=== PATIENT | male | born 1955 | race Caucasian/White ===

== ENCOUNTER 2021-06-28 09:08 | Emergency (ER) | payer OTHER ==
[2021-06-28 09:54] LABS: BASOPHILS % (AUTO) 0.7 %; EOSINOPHILS # (AUTO) 0.2 10^3/uL (0.0-0.7); EOSINOPHILS % (AUTO) 3.6 %; HCT - HEMATOCRIT 43.4 % (42.0-52.0); LYMPHOCYTES # (AUTO) 1.9 10^3/uL (1.5-3.5); MEAN CORPUSCULAR HEMOGLOBIN 32.7 pg (27.0-31.0); MEAN CORPUSCULAR HGB CONC 34.6 g/dL (32.0-36.0); MEAN CORPUSCULAR VOLUME 94.6 fL (80.0-94.0); MEAN PLATELET VOLUME 10.1 fL (7.4-11.4); MONOCYTES # (AUTO) 0.7 10^3/uL (0.0-1.0); MONOCYTES % (AUTO) 11.5 %; NEUTROPHILS # (AUTO) 2.9 10^3/uL (1.5-6.6); NEUTROPHILS % (AUTO) 50.9 %; PLT - PLATELET COUNT 160 10^3/uL (130-450); RED BLOOD COUNT 4.59 10^6/uL (4.70-6.10); RED CELL DISTRIBUTION WIDTH 12.8 % (12.0-15.0); WHITE BLOOD COUNT 5.8 x10^3/uL (4.8-10.8)
--- NOTE | 2021-06-28 09:54 | ED Physician Documentation ---
PD HPI ABD PAIN - Stated complaint Stated Complaint: RLQ PX - Chief complaint Chief Complaint: Abd Pain - History obtained from History obtained from: Patient - History of Present Illness Timing - onset: How many hours ago (2-3) Timing - duration: Hours (2-3) Timing - details: Abrupt onset, Still present Quality: Aching, Pain Location: RLQ, Suprapubic Radiation: Lower back Improved by: Laying still Worsened by: Moving, Palpation. No: Eating, Breathing Associated symptoms: Nausea. No: Fever, Vomiting, Diarrhea, Constipation, Dysuria Similar symptoms before: Has not had sx before (had prior diverticulitis but pain was left lower/lateral abd at that time and slower onset.) Recently seen: Not recently seen Review of Systems Constitutional: denies: Fever, Chills Nose: denies: Rhinorrhea / runny nose, Congestion Throat: denies: Sore throat Cardiac: denies: Chest pain / pressure Respiratory: denies: Dyspnea, Cough GI: reports: Abdominal Pain, Nausea. denies: Vomiting, Constipation, Diarrhea : denies: Dysuria Skin: denies: Rash, Lesions Neurologic: reports: Generalized weakness. denies: Near syncope Endocrine: denies: Weight loss Immunocompromised: denies: Immunocompromised PD PAST MEDICAL HISTORY - Past Medical History Cardiovascular: Hypertension Respiratory: None Neuro: None GI: Diverticulitis - Present Medications Home Medications: Ambulatory Orders Medication Instructions Recorded Confirmed Docusate Sodium 100Mg Capsule 100 mg PO DAILY #15 cap 06/28/21 [Colace 100Mg Capsule] HYDROcod/ACETAM 5/325 [[place] 5/325] 1 ea PO Q6H PRN #15 tablet 06/28/21 Naproxen 250 mg PO TID 7 Days #20 tablet 06/28/21 Ondansetron Odt [Zofran] 4 mg TL Q6H PRN #10 tablet 06/28/21 cephALEXin [Keflex] 500 mg PO BID 7 Days #14 cap 06/28/21 metroNIDAZOLE [Flagyl] 500 mg PO BID #14 tablet 06/28/21 - Allergies Allergies/Adverse Reactions: Allergies Allergy/AdvReac Type Severity Reaction Status Date / Time ciprofloxacin Allergy Edema Verified 06/28/21 09:36 PD ED PE NORMAL - Vitals Vital signs reviewed: Yes - General General: Alert and oriented X 3, Well developed/nourished, Other (appears in considerable pain. ) - Neck Neck: Supple, no meningeal sign, No adenopathy - Cardiac Cardiac: RRR, No murmur - Respiratory Respiratory: Clear bilaterally - Abdomen Abdomen: Normal bowel sounds, Soft, Non distended, No organomegaly, Other ( tender suprapubic and RLQ area with local guarding. Some tender left lower and refers to RLQ with palpation there. ) - Male Male : Deferred - Rectal Rectal: Deferred - Back Back: No CVA TTP - Derm Derm: Normal color, Warm and dry, No rash - Extremities Extremities: No edema, No calf tenderness / cord - Neuro Neuro: Alert and oriented X 3, No motor deficit, Normal speech Results - Vitals Vitals: Vital Signs - 24 hr 06/28/21 06/28/21 09:18 11:37 Temperature 37.2 C Heart Rate 57 L 76 Respiratory 17 18 Rate Blood Pressure 130/85 H 109/57 L O2 Saturation 99 99 Oxygen O2 Source Room air - Labs Labs: Laboratory Tests 06/28/21 06/28/21 06/28/21 09:47 09:47 09:53 WBC 5.8 RBC 4.59 L Hgb 15.0 Hct 43.4 MCV 94.6 H MCH 32.7 H MCHC 34.6 RDW 12.8 Plt Count 160 MPV 10.1 Neut # (Auto) 2.9 Lymph # (Auto) 1.9 [place] # (Auto) 0.7 Eos # (Auto) 0.2 Baso # (Auto) 0.0 Absolute Nucleated RBC 0.00 Nucleated RBC % 0.0 Sodium 139 Potassium 4.1 Chloride 106 Carbon Dioxide 24 Anion Gap 9.0 BUN 14 Creatinine 0.7 Estimated GFR (MDRD) 114 Glucose 131 H Calcium 9.0 Total Bilirubin 0.9 AST 39 ALT 56 Alkaline Phosphatase 65 Total Protein 7.2 Albumin 4.0 Globulin 3.2 Albumin/Globulin Ratio 1.3 Lipase 32 Urine Color YELLOW Urine Clarity CLEAR Urine pH 5.5 Ur Specific [place] >=1.030 H Urine Protein NEGATIVE Urine Glucose (UA) NEGATIVE Urine Ketones NEGATIVE Urine Occult Blood SMALL H Urine Nitrite NEGATIVE Urine Bilirubin NEGATIVE Urine Urobilinogen 0.2 (NORMAL) Ur Leukocyte Esterase NEGATIVE Urine RBC 0-5 Urine WBC 0-3 Ur Squamous Epith Cells FEW Squamous Urine Bacteria Rare Ur Microscopic Review INDICATED Urine Culture Comments NOT INDICATED - Rads (name of study) abd/pelvic CT Radiology: Prelim report reviewed (normal appendix. There is some fat stranding along sigmoid colon in area of diverticula. c/w diverticulitis. No focal abscess. ), See rad report PD MEDICAL DECISION MAKING - ED course Complexity details: reviewed results, re-evaluated patient (improved with pain meds, feeling comfortable enough now. ), considered differential (seems possible kidney stone, appendicitis, diverticulitits, aortic process, other concerns. ), d/w patient Departure - Departure Disposition: 01 Home, Self Care Clinical Impression: Diverticulitis Abdominal pain Qualifiers: Abdominal location: right lower quadrant Qualified Code(s): R10.31 - Right lower quadrant pain Condition: Stable Record reviewed to determine appropriate education?: Yes Instructions: ED Diverticulitis Prescriptions: Docusate Sodium 100Mg Capsule [Colace 100Mg Capsule] 100 mg PO DAILY #15 cap metroNIDAZOLE [Flagyl] 500 mg PO BID #14 tablet cephALEXin [Keflex] 500 mg PO BID 7 Days #14 cap Naproxen 250 mg PO TID 7 Days #20 tablet HYDROcod/ACETAM 5/325 [[place] 5/325] 1 ea PO Q6H PRN #15 tablet PRN Reason: Pain Ondansetron Odt [Zofran] 4 mg TL Q6H PRN #10 tablet PRN Reason: Nausea / Vomiting Comments: CT scan shows diverticulitis in the sigmoid area which is lower abdomen in the middle. No kidney stones. Normal appendix. No other acute process. Stay well-hydrated. Use ondansetron if needed for nausea. Naproxen twice daily for inflammation. Docusate stool softener twice daily for couple of days and then daily for a week or 2. This hopefully will help with some of the hemorrhoids as well. Metronidazole and cephalexin antibiotics as directed for a week. Add Tylenol every 4-6 hours or hydrocodone if needed for worse pain. Recheck if not improved well over the next 2 to 3 days. For some reason I was unable to transmit your prescriptions to the [facility] in [place]. I printed them out instead. Discharge Date/Time: 06/28/21 12:20
[2021-06-28 10:11] LABS: ALBUMIN/GLOBULIN RATIO 1.3 (1.0-2.2); BILIRUBIN,TOTAL 0.9 mg/dL (0.2-1.0); CREATININE 0.7 mg/dL (0.6-1.2); POTASSIUM 4.1 mmol/L (3.5-5.0); TOTAL PROTEIN 7.2 g/dL (6.7-8.2)
[2021-06-28 10:11] LABS: BILIRUBIN,URINE NEGATIVE (NEGATIVE); GLUCOSE, URINE (UA) NEGATIVE (NEGATIVE); KETONES,URINE (UA) NEGATIVE (NEGATIVE); LEUKOCYTE ESTERASE, URINE NEGATIVE (NEGATIVE); NITRITE,URINE NEGATIVE (NEGATIVE); OCCULT BLOOD,URINE SMALL (NEGATIVE); PH,URINE 5.5 PH (5.0-7.5); PROTEIN,URINE NEGATIVE (NEGATIVE); UROBILINOGEN,URINE 0.2 (NORMAL) E.U./dL (NORMAL)
[2021-06-28 10:12] LABS: CLARITY,URINE CLEAR (CLEAR)
[2021-06-28] MEDS ORDERED: HYDROmorphone 1 MG/ML CARPUJECT IVP STA (10:18)
[2021-06-28] MEDS ORDERED: ONDANSETRON 4 MG/2 ML VIAL IVP STA (10:18)
[2021-06-28] MEDS ORDERED: SODIUM CHLORIDE 0.9% 1,000 ML IV STA (10:18)
[2021-06-28] MEDS ORDERED: KETOROLAC 30 MG/ML VIAL IVP STA (10:18)
[2021-06-28 10:22] LABS: BACTERIA,URINE Rare /HPF (None Seen); RBC,URINE 0-5 /HPF (0-5); SQUAMOUS EPITHELIAL CELL,UR FEW Squamous (<= Few); WBC,URINE 0-3 /HPF (0-3)
[2021-06-28] MEDS ORDERED: IOPAMIDOL-300 100 ML VIAL ONE (10:34)
--- NOTE | 2021-06-28 11:11 | CT Report ---
PROCEDURE: Abdomen/Pelvis W INDICATIONS: Lower abd pain abrupt this morning CONTRAST: IV CONTRAST: Isovue 300 ml: 100 PO CONTRAST: *NO PO CONTRAST TECHNIQUE: After the administration of intravenous contrast, 5 mm thick sections acquired from the diaphragms to the symphysis. 5 mm thick coronal and sagittal reformats were acquired. For radiation dose reducti on, the following was used: automated exposure control, adjustment of mA and/or kV according to minnie ent size. COMPARISON: None. FINDINGS: Image quality: Excellent. ABDOMEN: Lung bases: Lung bases are clear. Heart size is normal. Solid organs: Hepatic hypoattenuation indicative of steatosis. Multiple small hepatic cysts. No solid hepatic mass identified. The spleen is unremarkable. No adrenal gland nodular mass. Cyst in the infe rior pole of the right kidney measuring approximately 4.8 cm. Nonobstructing right renal calculus roxie suring 4 mm. No hydronephrosis or hydroureter. Pancreas is within normal limits. Gallbladder unremark able. Peritoneum and bowel: No abnormally dilated or thickened loops of bowel. Pericolonic or mesenteric fa t stranding. Subtle fat stranding adjacent to the sigmoid colon with numerous associated diverticula, consistent with diverticulitis. No right lower quadrant inflammatory changes. Nodes and vessels: No retroperitoneal or mesenteric adenopathy by size criteria. Aorta and inferior vena cava are normal in size. Miscellaneous: No ventral hernias. PELVIS: Genitourinary: Bladder wall thickness is normal. Miscellaneous: No inguinal hernias or adenopathy. Bones: No suspicious bony lesions. No vertebral body compression fractures. IMPRESSION: Subtle fat stranding adjacent to the sigmoid colon indicative of mild diverticulitis. No associated fluid collection or perforation. Reviewed by: Magdaleno Garcia MD on 06/28/2021 11:09 AM PDT Approved by: Magdaleno Garcia MD on 06/28/2021 11:09 AM PDT Station ID: [id number]
[2021-06-28] MEDS ORDERED: cefTRIAXone 1 GM VIAL IVP STA (11:21)
[2021-06-28] MEDS ORDERED: metroNIDAZOLE 250 MG TABLET PO STA (11:21)
[2021-06-28] MEDS ORDERED: IOPAMIDOL-300 100 ML VIAL IVP ONE (11:33)
[2021-06-28 11:42] VITALS: BP 109/57
== END 2021-06-28 12:20 | disposition home or self-care (01) ==
LOC: ED 09:08
DX: K57.12 Diverticulitis of small intestine without perforation or abscess without bleeding (principal)
CPT/HCPCS: 36415; 74177; 80053; 81001; 83690; 85025; 96361; 96374; 96375; 99284; A9270; J1170; Q9967; 81003; 87086